=== PATIENT | female | born 1970 | race American Indian/Alaskan Native ===

== ENCOUNTER 2021-02-14 14:33 | Emergency (ER) | payer SELFPAY ==
[2021-02-14 14:42] VITALS: BP 120/79
--- NOTE | 2021-02-14 16:31 | Emergency Department Report ---
ED General Adult HPI - General Chief complaint: Skin Rash Stated complaint: FACE BREAKING OUT/COUGH Time Seen by Provider: 02/14/21 15:45 Source: patient Mode of arrival: Ambulatory Limitations: No Limitations - History of Present Illness Initial comments: 50-year-old -[place] female patient presents with complaints of a nonpainful intermittent rash all over her body and scalp for 1 year. Patient states she has tried triamcinolone in the past and it has helped with her lesions. She states she does have a lapel padder and just has to make an appointment. Patient states she was also seen at [facility] for this rash and was not prescribed any medication. Chief complaint states cough, however patient denies any cough or shortness of breath or chest pain. -: Gradual - Related Data Previous Rx's Medication Instructions Recorded Last Taken Type Amoxicillin [Trimox CAP] 500 mg PO Q8H #30 capsule 01/25/14 Unknown Rx HYDROcodone/APAP 7.5-325 [[place] 1 each PO Q6HR PRN #15 tablet 01/25/14 Unknown Rx 7.5/325 mg] Gabapentin [Neurontin] 300 mg PO Q8H #30 capsule 04/27/14 Unknown Rx HYDROcodone/ACETAMINOPHEN [[place] 1 each PO Q6HR PRN #20 tablet 04/27/14 Unknown Rx 7.5-325 mg TAB] Triamcinolone Acetonide 80 gm TP TID PRN 7 Days #1 02/14/21 Unknown Rx oint...g. Allergies Allergy/AdvReac Type Severity Reaction Status Date / Time No Known Allergies Allergy Unverified 01/25/14 04:48 ED Review of Systems ROS: Stated complaint: FACE BREAKING OUT/COUGH Other details as noted in HPI Constitutional: denies: chills, diaphoresis, fever, malaise, weakness Respiratory: denies: cough, shortness of breath Cardiovascular: denies: chest pain ED Past Medical Hx - Past Medical History Previous Medical History?: No - Surgical History Past Surgical History?: Yes Additional Surgical History: CS X 4,ABLATION, HERNIA REPAIR - Social History Smoking Status: Never Smoker Substance Use Type: None - Medications Home Medications: Home Medications Medication Instructions Recorded Confirmed Last Taken Type Amoxicillin [Trimox CAP] 500 mg PO Q8H #30 capsule 01/25/14 Unknown Rx HYDROcodone/APAP 7.5-325 [[place] 1 each PO Q6HR PRN #15 tablet 01/25/14 Unknown Rx 7.5/325 mg] Gabapentin [Neurontin] 300 mg PO Q8H #30 capsule 04/27/14 Unknown Rx HYDROcodone/ACETAMINOPHEN [[place] 1 each PO Q6HR PRN #20 tablet 04/27/14 Unknown Rx 7.5-325 mg TAB] Triamcinolone Acetonide 80 gm TP TID PRN 7 Days #1 02/14/21 Unknown Rx oint...g. ED Physical Exam - General Limitations: No Limitations General appearance: alert, in no apparent distress - Head Head exam: Present: atraumatic, normocephalic, normal inspection - Eye Eye exam: Present: normal appearance - Respiratory Respiratory exam: Absent: respiratory distress - Cardiovascular Cardiovascular Exam: Present: regular rate - Neurological Exam Neurological exam: Present: alert, oriented X3 - Psychiatric Psychiatric exam: Present: normal affect, normal mood - Skin Skin exam: Present: warm, dry, normal color, other (Scabbed lesions noted to left side of face and tip of nose; no surrounding erythema or drainage noted; no tenderness to palpation noted). Absent: rash ED Course Vital Signs 02/14/21 14:41 Temperature 98.4 F Pulse Rate 102 H Respiratory 20 Rate Blood Pressure 120/79 O2 Sat by Pulse 99 Oximetry ED Medical Decision Making - Medical Decision Making 50-year-old -[place] female patient presents with complaints of a nonpainful intermittent rash all over her body and scalp for 1 year. Patient states she has tried triamcinolone in the past and it has helped with her lesions. She states she does have a lapel padder and just has to make an appointment. Patient states she was also seen at [facility] for this rash and was not prescribed any medication. Chief complaint states cough, however patient denies any cough or shortness of breath or chest pain. No signs of infection on exam. Triamcinolone prescribed. Recommend follow-up with lapel padder for further evaluation. She is nontoxic-appearing and stable for discharge home. Strict return precautions discussed in detail patient verbalized understanding. Critical care attestation.: If time is entered above; I have spent that time in minutes in the direct care of this critically ill patient, excluding procedure time. ED Disposition Clinical Impression: Chronic pruritic rash in adult Disposition: HOME / SELF CARE / HOMELESS Is pt being admited?: No Condition: Stable Instructions: Rash, Adult Prescriptions: Triamcinolone Acetonide 80 gm TP TID PRN 7 Days #1 oint...g. PRN Reason: Rash Referrals: PRIMARY CARE, [Primary Care Provider] - 3-5 Days
== END 2021-02-14 17:49 | disposition home or self-care (01) ==
LOC: ED 14:33
DX: L29.9 Pruritus, unspecified (principal)
CPT/HCPCS: 99282

== ENCOUNTER 2021-11-05 06:50 | Emergency (ER) | payer SELFPAY ==
--- NOTE | 2021-11-05 08:38 | Emergency Department Report ---
- General Chief complaint: Skin Rash Stated complaint: RASH ON SKIN Time Seen by Provider: 11/05/21 08:26 Source: patient Mode of arrival: Ambulatory Limitations: No Limitations - History of Present Illness Initial comments: 51-year-old black female with no past medical history presents to the emergency department for evaluation of skin rash and acne. She states that over the last several months she has had intermittent rash to her face, neck, bilateral arms and scalp. She states that rash to her face has white stuff coming out of it when she presses it like acne and she has dryness to her scalp, and erythematous rash to neck, arms, and bilateral ears. She states that her scalp has patches of dry scaly skin that comes intermittently. She states that scalp has pruritus . She states that she has had the same issue a few years ago and she use triamcinolone cream the scalp that improved the states that face also has some discoloration. MD complaint: rash, discoloration -: Gradual, month(s) (3-4) Location: face, neck, back, LUE, RUE Severity scale (0 -10): 0 Associated symptoms: itching Treatments Prior to Arrival: OTC topical medication - Related Data Previous Rx's Medication Instructions Recorded Last Taken Type Amoxicillin [Trimox CAP] 500 mg PO Q8H #30 capsule 01/25/14 Unknown Rx HYDROcodone/APAP 7.5-325 [[place] 1 each PO Q6HR PRN #15 tablet 01/25/14 Unknown Rx 7.5/325 mg] Gabapentin [Neurontin] 300 mg PO Q8H #30 capsule 04/27/14 Unknown Rx HYDROcodone/ACETAMINOPHEN [[place] 1 each PO Q6HR PRN #20 tablet 04/27/14 Unknown Rx 7.5-325 mg TAB] Triamcinolone Acetonide 80 gm TP TID PRN 7 Days #1 02/14/21 Unknown Rx oint...g. Prednisone [predniSONE 10 mg 10 mg PO .TAPER #1 pack 11/05/21 Unknown Rx (6-Day Pack, 21 Tabs)] Tretinoin 1 applicatio TP QPM #1 tube 11/05/21 Unknown Rx Triamcinolone 0.1% [Kenalog 0.1% 1 applic TP TID #1 bottle 11/05/21 Unknown Rx CREAM] Allergies Allergy/AdvReac Type Severity Reaction Status Date / Time No Known Allergies Allergy Verified 11/05/21 07:36 Abscess Boil HPI - HPI Chief Complaint: Skin Rash Stated Complaint: RASH ON SKIN Time Seen by Provider: 11/05/21 08:26 Home Medications: Previous Rx's Medication Instructions Recorded Last Taken Type Amoxicillin [Trimox CAP] 500 mg PO Q8H #30 capsule 01/25/14 Unknown Rx HYDROcodone/APAP 7.5-325 [[place] 1 each PO Q6HR PRN #15 tablet 01/25/14 Unknown Rx 7.5/325 mg] Gabapentin [Neurontin] 300 mg PO Q8H #30 capsule 04/27/14 Unknown Rx HYDROcodone/ACETAMINOPHEN [[place] 1 each PO Q6HR PRN #20 tablet 04/27/14 Unknown Rx 7.5-325 mg TAB] Triamcinolone Acetonide 80 gm TP TID PRN 7 Days #1 02/14/21 Unknown Rx oint...g. Prednisone [predniSONE 10 mg 10 mg PO .TAPER #1 pack 11/05/21 Unknown Rx (6-Day Pack, 21 Tabs)] Tretinoin 1 applicatio TP QPM #1 tube 11/05/21 Unknown Rx Triamcinolone 0.1% [Kenalog 0.1% 1 applic TP TID #1 bottle 11/05/21 Unknown Rx CREAM] Allergies/Adverse Reactions: Allergies Allergy/AdvReac Type Severity Reaction Status Date / Time No Known Allergies Allergy Verified 11/05/21 07:36 ED Review of Systems ROS: Stated complaint: RASH ON SKIN Other details as noted in HPI Comment: All other systems reviewed and negative Constitutional: denies: chills, fever, weakness Eyes: denies: vision change ENT: denies: congestion Respiratory: denies: shortness of breath Cardiovascular: denies: chest pain Gastrointestinal: denies: abdominal pain, nausea, vomiting Genitourinary: denies: urgency, dysuria Musculoskeletal: denies: back pain Skin: rash, pruritus Neurological: denies: headache, weakness ED Past Medical Hx - Surgical History Additional Surgical History: CS X 4,ABLATION, HERNIA REPAIR - Social History Smoking Status: Never Smoker Substance Use Type: None - Medications Home Medications: Home Medications Medication Instructions Recorded Confirmed Last Taken Type Amoxicillin [Trimox CAP] 500 mg PO Q8H #30 capsule 01/25/14 Unknown Rx HYDROcodone/APAP 7.5-325 [[place] 1 each PO Q6HR PRN #15 tablet 01/25/14 Unknown Rx 7.5/325 mg] Gabapentin [Neurontin] 300 mg PO Q8H #30 capsule 04/27/14 Unknown Rx HYDROcodone/ACETAMINOPHEN [[place] 1 each PO Q6HR PRN #20 tablet 04/27/14 Unknown Rx 7.5-325 mg TAB] Triamcinolone Acetonide 80 gm TP TID PRN 7 Days #1 02/14/21 Unknown Rx oint...g. Prednisone [predniSONE 10 mg 10 mg PO .TAPER #1 pack 11/05/21 Unknown Rx (6-Day Pack, 21 Tabs)] Tretinoin 1 applicatio TP QPM #1 tube 11/05/21 Unknown Rx Triamcinolone 0.1% [Kenalog 0.1% 1 applic TP TID #1 bottle 11/05/21 Unknown Rx CREAM] ED Physical Exam - General Limitations: No Limitations General appearance: alert, in no apparent distress - Head Head exam: Present: atraumatic, normocephalic - Expanded Head Exam Expanded 1 - Dry scaly patches noted in several places throughout - Eye Eye exam: Present: normal appearance. Absent: conjunctival injection, periorbital swelling, periorbital tenderness - Neck Neck exam: Absent: normal inspection (Diffuse erythematous pruritic rash noted), tenderness, lymphadenopathy - Respiratory Respiratory exam: Absent: respiratory distress - Cardiovascular Cardiovascular Exam: Present: regular rate - GI/Abdominal GI/Abdominal exam: Absent: distended - Extremities Exam Extremities exam: Absent: normal inspection - Expanded Upper Extremity Exam Left Upper Arm exam: Present: erythema. Absent: normal inspection (Diffuse rash with some areas of discoloration), tenderness, swelling Vascular: Present: normal capillary refill, radial pulse. Absent: vascular compromise, pulse deficit radial art Right Upper Arm exam: Present: erythema. Absent: normal inspection (Diffuse rash with some areas of discoloration), tenderness, swelling Vascular: Present: normal capillary refill, radial pulse. Absent: vascular compromise, Pallo, pulse deficit radial art - Back Exam Back exam: Absent: normal inspection (Diffuse rash and erythema noted to upper back) - Neurological Exam Neurological exam: Present: alert, oriented X3 - Psychiatric Psychiatric exam: Present: normal affect, normal mood - Skin Skin exam: Present: warm, dry, intact, rash ED Course Vital Signs 11/05/21 07:34 Temperature 98 F Pulse Rate 93 H Respiratory 18 Rate Blood Pressure 138/84 [Right] O2 Sat by Pulse 98 Oximetry ED Medical Decision Making - Medical Decision Making 51-year-old black female with no past medical history presents to the emergency department for evaluation of skin rash and acne. She states that over the last several months she has had intermittent rash to her face, neck, bilateral arms and scalp. She states that rash to her face has white stuff coming out of it when she presses it like acne and she has dryness to her scalp, and erythematous rash to neck, arms, and bilateral ears. She states that her scalp has patches of dry scaly skin that comes intermittently. She states that scalp has pruritus. She states that she has had the same issue a few years ago and she use triamcinolone cream the scalp that improved the states that face also has some discoloration. Physical exam noted to have eczema type rash to scalp and diffuse erythematous rash noted to neck arms and back along with acne on face. Patient will be given steroid pack to take for contact dermatitis on neck years back and arms, triamcinolone cream to put in scalp, and acne cream to place on face. She will be advised to follow-up with dermatology for further evaluation and management and return to the emergency department for any concerning symptoms. She verbalizes understanding of and agreement with plan of care. Critical care attestation.: If time is entered above; I have spent that time in minutes in the direct care of this critically ill patient, excluding procedure time. ED Disposition Clinical Impression: Eczema of scalp Contact dermatitis Qualifiers: Contact dermatitis type: unspecified Contact dermatitis trigger: unspecified trigger Qualified Code(s): L25.9 - Unspecified contact dermatitis, unspecified cause Acne Qualifiers: Acne type: unspecified acne Qualified Code(s): L70.9 - Acne, unspecified Disposition: 01 HOME / SELF CARE / HOMELESS Is pt being admited?: No Does the pt Need Aspirin: No Condition: Stable Instructions: Contact Dermatitis, [id number], Acne, [id number], Eczema Additional Instructions: Take steroid pack as directed. Use triamcinolone cream on scalp only. Use Prescriptions: Triamcinolone 0.1% [Kenalog 0.1% CREAM] 1 applic TP TID #1 bottle Prednisone [predniSONE 10 mg (6-Day Pack, 21 Tabs)] 10 mg PO .TAPER #1 pack Tretinoin 1 applicatio TP QPM #1 tube Referrals: LUIS A BINGHAM MD [Staff Physician] - 3-5 Days Time of Disposition: 08:48
[2021-11-05 09:12] VITALS: BP 130/78
== END 2021-11-05 09:11 | disposition home or self-care (01) ==
LOC: ED 06:50
DX: L70.9 Acne, unspecified (principal); Z98.890 Other specified postprocedural states
CPT/HCPCS: 99282